=== PATIENT | female | born 1980 | race Two or more races ===

== ENCOUNTER 2016-05-08 22:08 | Emergency (ER) | payer OTHER ==
[~2016-05-08] VITALS: Ht 170.2 cm; Wt 117.1 kg
[~2016-05-08 22:08] MED LIST: ASPIR 8181 M1 PO; CHILDREN'S ASPI81 M1 PO; ENDOCET 5-3251 EACH PO; IBUPROFEN800 MG PO; PRENATAL TABLE1 EAC3 PO; ZANTAC150 MG PO
[2016-05-08 22:32] LABS: ADD MIUA? YES; BILIRUBIN NEGATIVE; BLOOD TRACE; COLOR YELLOW ((YELLOW)); GLUCOSE (STRIP) NEGATIVE; KETONES NEGATIVE; LEUKOCYTES TRACE; NITRITE POSITIVE; PROTEIN (STRIP) NEGATIVE; SPECIFIC GRAVITY 1.021 (1.000-1.030); UROBILINOGEN 0.2 MG/DL (0.2-1.0)
[2016-05-08 22:49] LABS: BACTERIA 3+; CASTS NONE SEEN /LPF; CRYSTALS NONE SEEN; EPITHELIAL CELLS RARE; MUCUS NONE SEEN; RED BLOOD CELLS 0-5 /HPF (0-5); UCUL ADDED? YES
[2016-05-08] MEDS ORDERED: CIPRO500 MG PO (23:15)
[2016-05-08] MEDS ORDERED: MOTRIN600 MG PO (23:15)
[2016-05-08] MEDS ORDERED: XOPENEX HF200 INHALA IH (23:39)
[2016-05-08 23:58] VITALS: BP 116/60
== END 2016-05-09 00:01 | disposition home or self-care (01) ==
LOC: EME 22:08
DX: N39.0 Urinary tract infection, site not specified (principal); K21.9 Gastro-esophageal reflux disease without esophagitis; J45.909 Unspecified asthma, uncomplicated; Z88.2 Allergy status to sulfonamides; Z72.0 Tobacco use
CPT/HCPCS: 81003; 87077; 87086; 87186; 99281; 99284

== ENCOUNTER 2016-05-20 21:30 | Emergency (ER) | payer OTHER ==
[~2016-05-20] VITALS: Ht 165.1 cm; Wt 117.8 kg
[~2016-05-20 21:30] MED LIST changes: +CIPRO500 MG PO; +MOTRIN600 MG PO; +XOPENEX HF200 INHALA IH
[2016-05-20 22:00] LABS: ADD MIUA? NO; BILIRUBIN NEGATIVE; BLOOD NEGATIVE; COLOR YELLOW ((YELLOW)); GLUCOSE (STRIP) NEGATIVE; KETONES NEGATIVE; LEUKOCYTES NEGATIVE; NITRITE NEGATIVE; PROTEIN (STRIP) NEGATIVE; SPECIFIC GRAVITY 1.028 (1.000-1.030); UCUL ADDED? NO; UROBILINOGEN 0.2 MG/DL (0.2-1.0)
[2016-05-21 00:16] LABS: HEMATOCRIT 37.3 % (36.0-46.0); MCH 29.7 PG (29.0-34.0); MCHC 32.4 G/DL (30.0-36.0); MCV 91.6 FL (83-99); MEAN PLAT.VOLUME 10.6 uM^3 (9.5-12.4); PLATELET COUNT 199 K/uL (156-360); RBC DIS.WIDTH-CV 12.8 % (11.8-14.6); RBC DIS.WIDTH-SD 41.9 % (39-53); RED BLOOD COUNT 4.07 M/uL (3.80-5.20); WHITE BLOOD COUNT 9.5 K/uL (4.1-10.2)
[2016-05-21 00:25] LABS: CHLORIDE 108 mEq/L (99-109); POTASSIUM 4.2 mEq/L (3.7-5.4); SODIUM 142 mEq/L (136-147)
[2016-05-21 00:27] LABS: GLUCOSE 90 mg/dL (70-99)
[2016-05-21 00:28] LABS: ANION GAP 7 MEQ/L (2-14)
[2016-05-21 00:29] LABS: TOTAL BILIRUBIN 0.1 mg/dL (0.0-1.0)
[2016-05-21 00:30] LABS: ALKALINE PHOSPHATASE 142 IU/L (3-129)
[2016-05-21 00:31] LABS: GFR ESTIMATE (CALCULATED) > 59 mL/min/
[2016-05-21 00:32] LABS: UREA NITROGEN (BUN) 12 mg/dL (9-23)
[2016-05-21 00:34] LABS: LIPASE 36 U/L (1.0-51.0)
[2016-05-21] MEDS ORDERED: FLEXERIL10 MG PO (00:43)
[2016-05-21] MEDS ORDERED: NAPROSYN500 MG PO (00:43)
[2016-05-21] MEDS ORDERED: TRAMADOL HCL50 MG PO (00:43)
[2016-05-21 01:16] VITALS: BP 110/77
== END 2016-05-21 01:17 | disposition home or self-care (01) ==
LOC: EME 21:30
PROVIDERS: Physician Assistant
DX: R10.9 Unspecified abdominal pain (principal); J45.909 Unspecified asthma, uncomplicated; F17.200 Nicotine dependence, unspecified, uncomplicated
CPT/HCPCS: 80053; 81003; 83690; 85027; 99281; 99284

== ENCOUNTER 2016-07-04 21:59 | Emergency (ER) | payer OTHER ==
[~2016-07-04] VITALS: Ht 170.2 cm; Wt 118.0 kg
[~2016-07-04 21:59] MED LIST changes: +FLEXERIL10 MG PO; +NAPROSYN500 MG PO; +TRAMADOL HCL50 MG PO
[2016-07-04 23:16] LABS: ADD MIUA? YES; BILIRUBIN NEGATIVE; BLOOD SMALL; COLOR YELLOW ((YELLOW)); GLUCOSE (STRIP) NEGATIVE; KETONES NEGATIVE; LEUKOCYTES SMALL; NITRITE POSITIVE; PROTEIN (STRIP) NEGATIVE; SPECIFIC GRAVITY 1.024 (1.000-1.030); UROBILINOGEN 0.2 MG/DL (0.2-1.0)
[2016-07-04 23:24] LABS: BACTERIA NONE SEEN /HPF; EPITHELIAL CELLS RARE /HPF; MUCUS TRACE /LPF; RED BLOOD CELLS 0-5 /HPF (0-5); UCUL ADDED? NO; WHITE BLOOD CELLS NONE SEEN /HPF (0-5)
[2016-07-04 23:24] LABS: HEMATOCRIT 38.9 % (36.0-46.0); MCH 29.7 PG (29.0-34.0); MCHC 31.9 G/DL (30.0-36.0); MCV 93.1 FL (83-99); MEAN PLAT.VOLUME 10.9 uM^3 (9.5-12.4); PLATELET COUNT 232 K/uL (156-360); RBC DIS.WIDTH-CV 12.5 % (11.8-14.6); RBC DIS.WIDTH-SD 42.9 % (39-53); RED BLOOD COUNT 4.18 M/uL (3.80-5.20); WHITE BLOOD COUNT 8.1 K/uL (4.1-10.2)
[2016-07-04 23:40] LABS: CHLORIDE 107 mEq/L (99-109); POTASSIUM 4.2 mEq/L (3.7-5.4); SODIUM 142 mEq/L (136-147)
[2016-07-04 23:42] LABS: GLUCOSE 85 mg/dL (70-99)
[2016-07-04 23:43] LABS: ANION GAP 8 MEQ/L (2-14)
[2016-07-04 23:46] LABS: GFR ESTIMATE (CALCULATED) > 59 mL/min/; TROP-I INTERPRETATION NEGATIVE; TROPONIN-I < 0.01 ng/mL (0.0-0.30); UREA NITROGEN (BUN) 8 mg/dL (9-23)
[2016-07-05] MEDS ORDERED: NAPROSYN500 MG PO (00:31)
[2016-07-05 01:01] VITALS: BP 122/66
== END 2016-07-05 01:07 | disposition home or self-care (01) ==
LOC: EME 21:59
PROVIDERS: Physician Assistant
DX: M26.621 Arthralgia of right temporomandibular joint (principal); G56.22 Lesion of ulnar nerve, left upper limb; R07.9 Chest pain, unspecified; X50.3XXA Overexertion from repetitive movements, initial encounter; F17.200 Nicotine dependence, unspecified, uncomplicated; Z71.6 Tobacco abuse counseling
CPT/HCPCS: 71020; 80048; 81003; 84484; 85027; 93005; 99281; 99284

== ENCOUNTER 2016-07-28 01:01 | Emergency (ER) | payer OTHER ==
[~2016-07-28] VITALS: Ht 170.2 cm; Wt 119.9 kg
[2016-07-28 01:28] LABS: ADD MIUA? YES; BILIRUBIN NEGATIVE; BLOOD SMALL; COLOR YELLOW ((YELLOW)); GLUCOSE (STRIP) NEGATIVE; KETONES NEGATIVE; LEUKOCYTES MODERATE; NITRITE POSITIVE; PROTEIN (STRIP) NEGATIVE; SPECIFIC GRAVITY 1.018 (1.000-1.030); UROBILINOGEN 0.2 MG/DL (0.2-1.0)
[2016-07-28 01:33] LABS: BACTERIA 2+ /HPF; EPITHELIAL CELLS 1+ /HPF; MUCUS TRACE /LPF; RED BLOOD CELLS 0-5 /HPF (0-5); UCUL ADDED? YES
[2016-07-28 01:46] LABS: HEMATOCRIT 35.8 % (36.0-46.0); MCH 29.3 PG (29.0-34.0); MCHC 32.1 G/DL (30.0-36.0); MCV 91.1 FL (83-99); MEAN PLAT.VOLUME 10.5 uM^3 (9.5-12.4); PLATELET COUNT 241 K/uL (156-360); RBC DIS.WIDTH-CV 12.6 % (11.8-14.6); RBC DIS.WIDTH-SD 41.5 % (39-53); RED BLOOD COUNT 3.93 M/uL (3.80-5.20); WHITE BLOOD COUNT 9.4 K/uL (4.1-10.2)
[2016-07-28 01:57] LABS: CHLORIDE 107 mEq/L (99-109); POTASSIUM 3.5 mEq/L (3.7-5.4); SODIUM 139 mEq/L (136-147)
[2016-07-28 01:59] LABS: GLUCOSE 94 mg/dL (70-99)
[2016-07-28 02:00] LABS: ANION GAP 9 MEQ/L (2-14)
[2016-07-28 02:01] LABS: TOTAL BILIRUBIN 0.2 mg/dL (0.0-1.0)
[2016-07-28 02:02] LABS: ALKALINE PHOSPHATASE 115 IU/L (3-129)
[2016-07-28 02:03] LABS: GFR ESTIMATE (CALCULATED) > 59 mL/min/
[2016-07-28 02:04] LABS: UREA NITROGEN (BUN) 11 mg/dL (9-23)
[2016-07-28 02:12] LABS: QUANTITATIVE HCG < 4.0 MIU/ML
[2016-07-28] MEDS ORDERED: CIPRO500 MG PO (03:18)
[2016-07-28 03:21] VITALS: BP 117/112
== END 2016-07-28 03:23 | disposition home or self-care (01) ==
LOC: EME 01:01
DX: N39.0 Urinary tract infection, site not specified (principal); K80.20 Calculus of gallbladder without cholecystitis without obstruction; J45.909 Unspecified asthma, uncomplicated; F17.200 Nicotine dependence, unspecified, uncomplicated
CPT/HCPCS: 74176; 80053; 81003; 84702; 85027; 87077; 87086; 87186; 99281; 99283

== ENCOUNTER 2016-10-14 00:01 | Emergency (ER) | payer OTHER ==
[~2016-10-14] VITALS: Ht 170.2 cm; Wt 125.5 kg
[2016-10-14] MEDS ORDERED: MOBIC15 MG PO (00:56)
[2016-10-14] MEDS ORDERED: [UNRECOGNIZED DRUG - REMARK] (00:56)
[2016-10-14 01:12] VITALS: BP 135/78
== END 2016-10-14 01:12 | disposition home or self-care (01) ==
LOC: EME 00:01
DX: G89.29 Other chronic pain (principal); M25.562 Pain in left knee; Z88.2 Allergy status to sulfonamides
CPT/HCPCS: 99281; 99283

== ENCOUNTER 2017-08-29 22:41 | Emergency (ER) | payer OTHER ==
[~2017-08-29] VITALS: Ht 172.7 cm; Wt 128.4 kg
[~2017-08-29 22:41] MED LIST changes: +MOBIC15 MG PO; +[UNRECOGNIZED DRUG - REMARK]
[2017-08-30] MEDS ORDERED: PREDNISONE20 MG PO (02:08)
[2017-08-30] MEDS ORDERED: XOPENEX HF200 INHALA IH (02:08)
[2017-08-30 02:22] VITALS: BP 113/81
== END 2017-08-30 02:24 | disposition home or self-care (01) ==
LOC: EME 22:41
DX: J45.901 Unspecified asthma with (acute) exacerbation (principal); Z87.891 Personal history of nicotine dependence; Z88.2 Allergy status to sulfonamides; Z88.1 Allergy status to other antibiotic agents
CPT/HCPCS: 94640; 99281; 99284; J7512